=== PATIENT | male | born 1965 | race Caucasian/White ===

== ENCOUNTER 2019-02-17 23:23 | Emergency (ER) | payer SELFPAY ==
[~2019-02-17] VITALS: Ht 177.8 cm; Wt 75.0 kg
[2019-02-17 23:29] VITALS: BP 188/113
== END 2019-02-18 00:26 | disposition left against medical advice (07) ==
LOC: ER 23:23
DX: Z53.21 Procedure and treatment not carried out due to patient leaving prior to being seen by health care provider (principal)

== ENCOUNTER 2019-03-28 19:27 | Inpatient (IN) | payer SELFPAY ==
[~2019-03-28] VITALS: Ht 180.3 cm; Wt 84.6 kg
[2019-03-28] MEDS ORDERED: SODIUM CHLORIDE 0.9% 1,000 ML IV ONE (19:52)
[2019-03-28] MEDS ORDERED: LORAZEPAM 2MG/ML CPJ IV ONE (20:15)
[2019-03-28 20:20] LABS: CLARITY URINE CLEAR (CLEAR); COLOR URINE YELLOW (YELLOW); KETONES URINE NEGATIVE (NEGATIVE); LEUKOCYTE ESTERASE URINE NEGATIVE (NEGATIVE); NITRITE URINE NEGATIVE (NEGATIVE); OCCULT BLOOD URINE 2+ (NEGATIVE); PROTEIN URINE TRACE (NEGATIVE); SPECIFIC GRAVITY URINE 1.007 (1.005-1.030); UROBILINOGEN URINE 0.2 E.U./dL (0.2-1.0)
[2019-03-28 20:38] LABS: BASOPHILS % 0.4 % (0.0-2.0); EOSINOPHILS % 0.9 % (0.0-5.0); HEMOGLOBIN. 13.1 g/dL (14.0-18.0); LYMPHOCYTES % 21.5 % (20.0-50.0); MEAN CORPUSCULAR VOLUME 95.6 fL (80.0-94.0); MEAN PLATELET VOLUME 8.1 fl (7.4-10.4); NEUTROPHILS % 70.2 % (40.0-76.0); PLATELET 118 x1000/uL (130-400); RED BLOOD CELL COUNT 4.08 mill/uL (4.7-6.1); RED CELL DISTRIBUTION WIDTH 13.3 % (11.6-14.6)
[2019-03-28 20:39] LABS: *AMPHETAMINES SCREEN URINE NEGATIVE (NEGATIVE); *BARBITURATES SCREEN URINE NEGATIVE (NEGATIVE); *BENZODIAZEPINES SCREEN URINE NEGATIVE (NEGATIVE); *COCAINE SCREEN URINE NEGATIVE (NEGATIVE); CANNABINOID URINE SCREEN NEGATIVE (NEGATIVE); METHADONE URINE SCREEN NEGATIVE (NEGATIVE); PHENCYCLIDINE URINE SCREEN NEGATIVE (NEGATIVE)
[2019-03-28 20:40] LABS: OPIATES URINE SCREEN PRESUMTIVE POSITIVE (NEGATIVE)
[2019-03-28 20:44] LABS: PROTHROMBIN TIME 10.1 sec (9.6-11.0)
[2019-03-28 20:50] LABS: CHLORIDE 97 mEq/L (98-107)
[2019-03-28 20:55] LABS: ETHANOL BLOOD 93 mg/dL
[2019-03-28 20:59] LABS: CREATINE KINASE 225 IU/L (39-308)
[2019-03-28] MEDS ORDERED: SODIUM CHLORIDE 0.9% 1,000 ML IV NR (21:30)
[2019-03-28] MEDS ORDERED: HYDRALAZINE 20MG/ML VIAL IV ONE (22:15)
[2019-03-29] VITALS (15 sets, daily range): BP systolic 130–179; BP diastolic 67–112
[2019-03-29] MEDS ORDERED: HYDRALAZINE 20MG/ML VIAL IV PRN (00:45)
[2019-03-29] MEDS ORDERED: DEXTROSE 50% WATER 50ML SYRINGE IV PRN (00:45)
[2019-03-29] MEDS ORDERED: ONDANSETRON HCL 4MG/2ML INJ IV PRN (00:45)
[2019-03-29] MEDS: LORAZEPAM 2MG/ML CPJ IV PRN ×3 (01:15→18:34)
[2019-03-29] MEDS: FOLIC ACID 1 MG, THIAMINE HCL 100 MG, MVI, ADULT NO.1 10 ML in DEXTROSE 5% WATER 1,000 ML IV NR ×8 (03:06→23:00)
[2019-03-29 05:47] LABS: BASOPHILS % 0.3 % (0.0-2.0); EOSINOPHILS % 0.7 % (0.0-5.0); HEMATOCRIT. 37.2 % (42.0-52.0); HEMOGLOBIN. 12.6 g/dL (14.0-18.0); LYMPHOCYTES % 21.9 % (20.0-50.0); MEAN CORPUSCULAR VOLUME 94.7 fL (80.0-94.0); MEAN PLATELET VOLUME 8.6 fl (7.4-10.4); MONOCYTES % 10.4 % (2.0-8.0); NEUTROPHILS % 66.7 % (40.0-76.0); PLATELET 104 x1000/uL (130-400); RED BLOOD CELL COUNT 3.93 mill/uL (4.7-6.1); RED CELL DISTRIBUTION WIDTH 13.2 % (11.6-14.6)
[2019-03-29 06:01] LABS: CHLORIDE 104 mEq/L (98-107)
[2019-03-29] MEDS: BLOOD SUGAR DIAGNOSTIC STRIP TEST SCH ×4 (06:34→21:45)
[2019-03-29] MEDS: INSULIN LISPRO 100 UNITS/ML SUBCUT SCH ×5 (06:35→22:17)
[2019-03-29] MEDS: PANTOPRAZOLE SODIUM 40 MG/VIAL IV SCH (08:22)
[2019-03-29] MEDS: AMLODIPINE 10MG TABLET PO SCH (08:24)
[2019-03-29] MEDS ORDERED: GABA400C PO (17:05)
[2019-03-29] MEDS ORDERED: OMEP10CA4 PO (17:05)
[2019-03-30] VITALS: BP 126/86
[2019-03-30] MEDS ORDERED: DEXT 5%/0.9% NACL 1,000 ML IV SCH
[2019-03-30] MEDS: LORAZEPAM 2MG/ML CPJ IV PRN ×2 (02:16→12:54)
[2019-03-30 04:00] VITALS: BP 183/111
[2019-03-30] MEDS: CLONIDINE 0.1MG TABLET PO PRN ×2 (05:50→11:51)
[2019-03-30] MEDS: BLOOD SUGAR DIAGNOSTIC STRIP TEST SCH ×2 (07:34→11:52)
[2019-03-30 08:00] VITALS: BP 142/90
[2019-03-30] MEDS ORDERED: COLCHICINE 0.6MG TABLET PO PRN (09:00)
[2019-03-30] MEDS: INSULIN LISPRO 100 UNITS/ML SUBCUT SCH ×2 (09:10→12:42)
[2019-03-30] MEDS: PANTOPRAZOLE SODIUM 40 MG/VIAL IV SCH (09:11)
[2019-03-30] MEDS: AMLODIPINE 10MG TABLET PO SCH (09:12)
[2019-03-30] MEDS: INDOMETHACIN 25MG CAPSULE PO SCH ×2 (09:12→12:40)
[2019-03-30 11:55] VITALS: BP 168/91
[2019-03-30] MEDS ORDERED: GLIPIZIDE XL 2.5MG TABLET PO SCH (12:00)
[2019-03-30 13:33] VITALS: BP 135/65
[2019-03-30 15:30] VITALS: BP 135/68
== END 2019-03-30 16:00 | disposition home or self-care (01) | DRG 812 ==
LOC: ER 19:27 → MICUSO 22:09 → EDBEDREQSVC 22:13 → EDBEDREQ 22:13 → EDBEDREQTM 22:13 → ENRESERV 22:33 → 6EST 03-29 12:30
PROVIDERS: ADMIT Hospitalist; ATTEND Hospitalist
DX: T40.2X1A Poisoning by other opioids, accidental (unintentional), initial encounter (principal); G92 Toxic encephalopathy; E11.65 Type 2 diabetes mellitus with hyperglycemia; E11.40 Type 2 diabetes mellitus with diabetic neuropathy, unspecified; M10.9 Gout, unspecified; R74.0 Nonspecific elevation of levels of transaminase and lactic acid dehydrogenase [LDH]; Z78.1 Physical restraint status; Z87.891 Personal history of nicotine dependence; Z79.4 Long term (current) use of insulin; Y92.89 Other specified places as the place of occurrence of the external cause
CPT/HCPCS: 36415; 71045; 80305; 80307; 80320; 80329; 82550; 82962; 83605; 84484; 84550; 93005; 96361; 96374; 97162; 99291; C9113; J0360; J1815; J2060; J3411; J3490; J7030; J7042; J7070; G0480

== ENCOUNTER 2019-12-07 01:09 | Emergency (ER) | payer MEDICAID, OTHER ==
[~2019-12-07] VITALS: Ht 180.3 cm; Wt 87.0 kg
[~2019-12-07 01:09] MED LIST: GABA400C PO; OMEP10CA5 PO
[2019-12-07] MEDS ORDERED: MORPHINE SULFATE 4 MG/ML CPJ (NOT FOR IM USE) IV ONE ×2 (01:30→01:45)
[2019-12-07] MEDS ORDERED: TETANUS, DIPHTHERIA, PERTUSSIS VAC/PF 0.5ML (>7YR OLD) IM ONE (02:00)
[2019-12-07] MEDS ORDERED: CEFAZOLIN 1000MG PREMIX 50 ML IV ONE (02:00)
[2019-12-07 02:04] LABS: CHLORIDE 99 mEq/L (98-107)
[2019-12-07 02:08] LABS: ETHANOL BLOOD 100 mg/dL
[2019-12-07 02:09] LABS: HEMOGLOBIN 12.6 g/dL (14.0-18.0); MEAN CORPUSCULAR HEMOGLOBIN 31.7 pg (28.0-32.0); MEAN CORPUSCULAR VOLUME 93.2 fL (80.0-94.0); PLATELET 158 x1000/uL (130-400); RED BLOOD CELL COUNT 3.97 mill/uL (4.7-6.1); RED CELL DISTRIBUTION WIDTH 14.2 % (11.6-14.6)
[2019-12-07 03:55] VITALS: BP 105/59
== END 2019-12-07 05:20 | disposition short-term general hospital (02) ==
LOC: ER 01:09
DX: S82.251B Displaced comminuted fracture of shaft of right tibia, initial encounter for open fracture type I or II (principal); S82.451A Displaced comminuted fracture of shaft of right fibula, initial encounter for closed fracture; F10.129 Alcohol abuse with intoxication, unspecified; W01.0XXA Fall on same level from slipping, tripping and stumbling without subsequent striking against object, initial encounter; Y93.89 Activity, other specified; Y92.89 Other specified places as the place of occurrence of the external cause; Y90.5 Blood alcohol level of 100-119 mg/100 ml; Z23 Encounter for immunization; I10 Essential (primary) hypertension
CPT/HCPCS: 27788; 36415; 70450; 73590; 73600; 80053; 80320; 85027; 90471; 90715; 96365; 96366; 96375; 96376; 99285; J0690; J2270; Z7610; G0480